=== PATIENT | male | born 1985 | race African-American/Black ===

== ENCOUNTER 2020-12-20 15:48 | Emergency (ER) | payer OTHER ==
[2020-12-20 16:09] VITALS: BP 128/76; PULSE 90; TEMP 98.4; BMI 27.3
[2020-12-20] MEDS ORDERED: KETOROLAC TROMETHAMINE 30 MG/1 ML VIAL IM ONE (16:58)
[2020-12-20] MEDS ORDERED: KETOROLAC TROMETHAMINE 30 MG/1 ML VIAL ONE (17:15)
== END 2020-12-20 17:20 | disposition home or self-care (01) ==
LOC: JERFT 15:48
PROC: 3E0233Z Introduction of Anti-inflammatory into Muscle, Percutaneous Approach (ICD-10-PCS; principal; 2020-12-20)
DX: K05.6 Periodontal disease, unspecified (principal); K02.9 Dental caries, unspecified
CPT/HCPCS: 99284-25

== ENCOUNTER 2021-01-29 17:34 | Emergency (ER) | payer OTHER ==
[2021-01-29 17:42] VITALS: BP 139/87; PULSE 80; TEMP 98; BMI 27.3
[2021-01-29] MEDS ORDERED: AMOX TR/POT CLAV 875MG/125MG TABLETS (FP) PO ONE (18:29)
[2021-01-29] MEDS ORDERED: AMOX TR/POT CLAV 875MG/125MG TABLETS (FP) ONE (18:36)
[2021-01-29] MEDS ORDERED: KETOROLAC TROMETHAMINE 30 MG/1 ML VIAL ONE (18:38)
[2021-01-29] MEDS ORDERED: KETOROLAC TROMETHAMINE 30 MG/1 ML VIAL IM ONE (18:39)
== END 2021-01-29 19:06 | disposition home or self-care (01) ==
LOC: JERFT 17:34 → JER 17:34 → JERFT 19:06
PROC: 3E0233Z Introduction of Anti-inflammatory into Muscle, Percutaneous Approach (ICD-10-PCS; principal; 2021-01-29)
DX: K04.7 Periapical abscess without sinus (principal)
CPT/HCPCS: 99284-25

== ENCOUNTER 2021-05-14 17:17 | Emergency (ER) | payer OTHER ==
[2021-05-14 17:34] VITALS: BP 144/90; PULSE 82; TEMP 98; BMI 26.7
[2021-05-14] MEDS ORDERED: KETOROLAC TROMETHAMINE 30 MG/1 ML VIAL IM ONE (17:46)
[2021-05-14] MEDS ORDERED: KETOROLAC TROMETHAMINE 30 MG/1 ML VIAL ONE (17:47)
== END 2021-05-14 17:58 | disposition home or self-care (01) ==
LOC: JER 17:17 → JERFT 17:17
PROC: 3E023GC Introduction of Other Therapeutic Substance into Muscle, Percutaneous Approach (ICD-10-PCS; principal; 2021-05-14)
DX: K04.7 Periapical abscess without sinus (principal)
CPT/HCPCS: 99284-25

== ENCOUNTER 2022-02-14 12:51 | Emergency (ER) | payer OTHER ==
[2022-02-14 12:56] VITALS: BP 148/80; PULSE 86; TEMP 98.6; BMI 27.7
[2022-02-14] MEDS ORDERED: KETOROLAC TROMETHAMINE 30 MG/1 ML VIAL IM ONE (14:00)
[2022-02-14] MEDS ORDERED: KETOROLAC TROMETHAMINE 30 MG/1 ML VIAL ONE (14:07)
[2022-02-14 15:00] LABS: BASO % 0.7 % (0-2.0); EOS % 1.6 % (0-4.5); HEMATOCRIT 43.8 % (35.4-49); HEMOGLOBIN 15.3 GM/dL (11.7-16.9); LYMPH % 10.6 % (8-40); MCH 31.2 pg (25.7-33.7); MCHC 34.9 g/dl (32.0-35.9); MEAN CELL VOLUME 89.6 fl (80-96); MEAN PLT VOLUME 8.8 fl (7.5-11.1); MONO % 8.1 % (3.8-10.2); PLATELET COUNT 201 10^3/uL (134-434); RBC 4.89 M/mm3 (4.00-5.60); RDW 13.4 % (11.9-15.9); WHITE BLOOD COUNT 12.8 K/mm3 (4.0-10.0)
[2022-02-14 15:21] LABS: BLOOD UREA NITROGEN 11.8 mg/dL (7-18)
[2022-02-14 15:25] LABS: CREATININE 1.1 mg/dL (0.55-1.3)
== END 2022-02-14 15:01 | disposition home or self-care (01) ==
LOC: JERFT 12:51
PROC: 3E023GC Introduction of Other Therapeutic Substance into Muscle, Percutaneous Approach (ICD-10-PCS; principal; 2022-02-14)
DX: R22.0 Localized swelling, mass and lump, head (principal)
CPT/HCPCS: 36415; 80048; 85025; 99284-25

== ENCOUNTER 2022-04-10 21:19 | Emergency (ER) | payer OTHER ==
[2022-04-10 21:34] VITALS: BP 112/70; PULSE 93; RESP 20; TEMP 98.2; BMI 31.6
[2022-04-10] MEDS ORDERED: ACETAMINOPHEN 1000 MG/100 ML BAG IVPB ONE (22:18)
[2022-04-10] MEDS ORDERED: ACETAMINOPHEN INJECTION 100 ML IVPB ONE (23:06)
[2022-04-10 23:22] LABS: BASO % 0.6 % (0-2.0); EOS % 5.6 % (0-4.5); HEMATOCRIT 41.5 % (35.4-49); HEMOGLOBIN 14.2 GM/dL (11.7-16.9); LYMPH % 16.5 % (8-40); MCH 30.9 pg (25.7-33.7); MCHC 34.2 g/dl (32.0-35.9); MEAN CELL VOLUME 90.4 fl (80-96); MEAN PLT VOLUME 8.2 fl (7.5-11.1); MONO % 7.9 % (3.8-10.2); NEUT % 69.4 % (42.8-82.8); PLATELET COUNT 202 10^3/uL (134-434); RBC 4.59 M/mm3 (4.00-5.60); RDW 13.7 % (11.9-15.9); WHITE BLOOD COUNT 8.3 K/mm3 (4.0-10.0)
[2022-04-10 23:30] LABS: INR 1.05 (0.83-1.09); PROTHROMBIN TIME (PATIENT) 12.1 SEC (9.7-13.0)
[2022-04-10 23:45] LABS: CALCIUM 8.7 mg/dL (8.5-10.1)
[2022-04-10 23:46] LABS: ALBUMIN 3.3 g/dl (3.4-5.0); BLOOD UREA NITROGEN 10.3 mg/dL (7-18)
[2022-04-10 23:49] LABS: CREATININE 1.1 mg/dL (0.55-1.3)
[2022-04-10 23:50] LABS: BILIRUBIN,TOTAL 0.2 mg/dL (0.2-1); TOT PROT 6.7 g/dl (6.4-8.2)
[2022-04-11] MEDS ORDERED: DIPHTH,PERTUSS(ACELL),TET 0.5 ML DISP.SYRIN IM ONE ×2 (02:51→02:54)
== END 2022-04-11 03:08 | disposition home or self-care (01) ==
LOC: JER 21:19
PROC: 3E0333Z Introduction of Anti-inflammatory into Peripheral Vein, Percutaneous Approach (ICD-10-PCS; principal; 2022-04-10)
PROC: 3E0234Z Introduction of Serum, Toxoid and Vaccine into Muscle, Percutaneous Approach (ICD-10-PCS; 2022-04-10)
DX: S09.90XA Unspecified injury of head, initial encounter (principal); V89.2XXA Person injured in unspecified motor-vehicle accident, traffic, initial encounter
CPT/HCPCS: 36415; 70450-TC; 71046-TC-FY; 71260-TC; 72125-TC; 73090-TC-LT-FY; 73130-TC-RT-FY; 73562-TC-LT-FY; 73562-TC-RT-FY; 73590-TC-LT-FY; 73590-TC-RT-FY; 73610-TC-LT-FY; 73610-TC-RT-FY; 73630-TC-LT; 73630-TC-RT-FY; 74177-TC; 80053; 85025; 85610; 85730; 86850; 86900; 86901; 90715; 93005; 93010; 99285-25; Q9967

== ENCOUNTER 2022-04-17 17:45 | Emergency (ER) | payer OTHER ==
[2022-04-17 18:04] VITALS: BP 120/68; PULSE 86; RESP 20; TEMP 98.3; BMI 31.1
== END 2022-04-17 19:52 | disposition home or self-care (01) ==
LOC: JER 17:45
DX: I80.8 Phlebitis and thrombophlebitis of other sites (principal)
CPT/HCPCS: 93971; 99284-25

== ENCOUNTER 2022-10-10 04:08 | Day surgery (SDC) | payer OTHER ==
[2022-10-08 13:51] VITALS: BMI 32.1
[2022-10-10] MEDS ORDERED: PROPOFOL 40 ML ONE (13:19)
[2022-10-10] MEDS ORDERED: MIDAZOLAM HCL 2 MG/2 ML SINGLE DOSE VIAL ONE (13:19)
[2022-10-10] MEDS ORDERED: ceFAZolin SODIUM 1 GM VIAL IVPB ONE (13:45)
[2022-10-10] MEDS ORDERED: oxyCODONE HCL 5 MG TABLET PO PRN (14:28)
[2022-10-10] MEDS ORDERED: ONDANSETRON 4 MG/2 ML VIAL IVPUSH PRN (14:28)
[2022-10-10] MEDS ORDERED: ACETAMINOPHEN 500 MG TABLET (FP) PO PRN (14:28)
[2022-10-10] MEDS ORDERED: ACETAMINOPHEN INJECTION 100 ML IVPB ONE (14:44)
[2022-10-10 15:46] VITALS: PULSE 60; RESP 20; TEMP 97.2
[2022-10-10 18:38] VITALS: BP 118/81
== END 2022-10-10 15:27 | disposition home or self-care (01) ==
LOC: JASU-SURG 04:08
PROVIDERS: ATTEND Urology
PROC: 0VC50ZZ Extirpation of Matter from Scrotum, Open Approach (ICD-10-PCS; principal; 2022-10-10 13:00)
DX: N49.2 Inflammatory disorders of scrotum (principal)
CPT/HCPCS: 87070; 87205; 88304-TC; 94760

== ENCOUNTER 2023-01-19 13:27 | Emergency (ER) | payer SELFPAY ==
[2023-01-19 13:37] VITALS: BP 123/81; PULSE 82; RESP 18; TEMP 98.8; BMI 32.0
[2023-01-19 14:34] LABS: HEMATOCRIT 43.8 % (35.4-49); HEMOGLOBIN 15.5 GM/dL (11.7-16.9); MCH 31.1 pg (25.7-33.7); MCHC 35.4 g/dl (32.0-35.9); MEAN CELL VOLUME 87.7 fl (80-96); MEAN PLT VOLUME 9.2 fl (7.5-11.1); PLATELET COUNT 207 10^3/uL (134-434); RBC 4.99 M/mm3 (4.00-5.60); RDW 13.3 % (11.9-15.9); WHITE BLOOD COUNT 11.5 K/mm3 (4.0-10.0)
[2023-01-19 15:01] LABS: POTASSIUM 4.4 mmol/L (3.5-5.1)
[2023-01-19 15:04] LABS: ALBUMIN 3.9 g/dl (3.4-5.0); BLOOD UREA NITROGEN 14.9 mg/dL (7-18); CALCIUM 8.5 mg/dL (8.5-10.1)
[2023-01-19 15:07] LABS: BILIRUBIN,DIRECT 0.3 mg/dL (0.0-0.2); CREATININE 1.2 mg/dL (0.55-1.3)
[2023-01-19 15:09] LABS: BILIRUBIN,TOTAL 1.1 mg/dL (0.2-1); TOT PROT 7.6 g/dl (6.4-8.2)
[2023-01-19] MEDS ORDERED: AMOX TR/POT CLAV 875MG/125MG TABLETS (FP) PO ONE (17:37)
[2023-01-19] MEDS ORDERED: AMOX TR/POT CLAV 875MG/125MG TABLETS (FP) ONE (17:41)
== END 2023-01-19 17:53 | disposition home or self-care (01) ==
LOC: JER 13:27 → JERFT 13:27
DX: K04.7 Periapical abscess without sinus (principal); R22.0 Localized swelling, mass and lump, head; R51.9 Headache, unspecified
CPT/HCPCS: 36415; 70491-TC; 80048; 80076; 85027; 99285-25; Q9967

== ENCOUNTER 2023-05-16 11:53 | Emergency (ER) | payer OTHER ==
[2023-05-16 12:06] VITALS: BP 107/70; PULSE 93; RESP 20; TEMP 99.4; BMI 36.5
[2023-05-16 15:03] LABS: BASO % 1.1 % (0-2.0); EOS % 2.3 % (0-4.5); HEMATOCRIT 42.6 % (35.4-49); HEMOGLOBIN 14.6 GM/dL (11.7-16.9); LYMPH % 15.3 % (8-40); MCH 30.5 pg (25.7-33.7); MCHC 34.2 g/dl (32.0-35.9); MEAN CELL VOLUME 89.2 fl (80-96); MEAN PLT VOLUME 8.5 fl (7.5-11.1); NEUT % 73.3 % (42.8-82.8); PLATELET COUNT 197 10^3/uL (134-434); RBC 4.78 M/mm3 (4.00-5.60); RDW 13.8 % (11.9-15.9); WHITE BLOOD COUNT 11.3 K/mm3 (4.0-10.0)
[2023-05-16] MEDS ORDERED: CLINDAMYCIN 600MG PREMIX IVPB 600 MG/50 ML BAG IVPB ONE ×2 (15:17→15:30)
[2023-05-16] MEDS ORDERED: ACETAMINOPHEN 500 MG TABLET (FP) PO ONE (15:17)
[2023-05-16 15:28] LABS: ALBUMIN 3.4 g/dl (3.4-5.0); BLOOD UREA NITROGEN 12.1 mg/dL (7-18)
[2023-05-16 15:29] LABS: CALCIUM 8.5 mg/dL (8.5-10.1)
[2023-05-16 15:32] LABS: CREATININE 1.1 mg/dL (0.55-1.3)
[2023-05-16] MEDS ORDERED: ACETAMINOPHEN 500 MG TABLET (FP) ONE (15:33)
[2023-05-16 15:34] LABS: BILIRUBIN,TOTAL 0.6 mg/dL (0.2-1); TOT PROT 6.8 g/dl (6.4-8.2)
== END 2023-05-16 19:12 | disposition home or self-care (01) ==
LOC: JER 11:53 → JERFT 11:53 → JER 19:12
DX: M79.652 Pain in left thigh (principal); N50.82 Scrotal pain; R22.42 Localized swelling, mass and lump, left lower limb; N49.2 Inflammatory disorders of scrotum
CPT/HCPCS: 36415; 76870-TC; 80053; 85025; 93971-TC; 99284-25

== ENCOUNTER 2024-03-08 20:54 | Emergency (ER) | payer SELFPAY ==
[2024-03-08 20:58] VITALS: BP 124/80; PULSE 96; RESP 20; TEMP 98.9; BMI 30.5
[2024-03-08] MEDS ORDERED: KETOROLAC TROMETHAMINE 30 MG/1 ML VIAL ONE (21:25)
[2024-03-08] MEDS ORDERED: AMOX TR/POT CLAV 875MG/125MG TABLETS (FP) ONE (21:25)
[2024-03-08] MEDS: AMOX TR/POT CLAV 875MG/125MG TABLETS (FP) PO ONE (21:30)
[2024-03-08] MEDS: KETOROLAC TROMETHAMINE 30 MG/1 ML VIAL IM ONE (21:30)
== END 2024-03-08 21:46 | disposition home or self-care (01) ==
LOC: JER 20:54
PROC: 3E0233Z Introduction of Anti-inflammatory into Muscle, Percutaneous Approach (ICD-10-PCS; principal; 2024-03-08)
DX: K04.7 Periapical abscess without sinus (principal); R22.0 Localized swelling, mass and lump, head
CPT/HCPCS: 99284-25

== ENCOUNTER 2024-07-03 13:56 | Emergency (ER) | payer SELFPAY ==
[2024-07-03 14:14] VITALS: BP 134/75; PULSE 87; RESP 20; TEMP 99.5; BMI 30.4
[2024-07-03] MEDS ORDERED: KETOROLAC TROMETHAMINE 30 MG/1 ML VIAL ONE (15:15)
[2024-07-03] MEDS: KETOROLAC TROMETHAMINE 30 MG/1 ML VIAL IM ONE (15:18)
== END 2024-07-03 16:18 | disposition home or self-care (01) ==
LOC: JERFT 13:56
PROC: 3E0233Z Introduction of Anti-inflammatory into Muscle, Percutaneous Approach (ICD-10-PCS; principal; 2024-07-03)
DX: K05.6 Periodontal disease, unspecified (principal); K08.89 Other specified disorders of teeth and supporting structures
CPT/HCPCS: 99284-25